=== PATIENT | female | born 1975 | race Caucasian/White ===

== ENCOUNTER 2017-07-15 10:46 | Day surgery (SDC) | payer BC ==
--- OUTSIDE RECORDS SUMMARY | 2017-07-15 10:48 | XMS | Clinical Summary ---
:1975 Author Organization [facility] Address [address] [place] [id number] Phone Care Team Providers Name Role Phone , Primary Care Provider Unavailable Allergies Active Allergy Reactions Severity Noted Date Comments Prochlorperazine Edisylate Anaphylaxis High 11/03/2014 Codeine Nausea And Vomiting 11/03/2014 Hydrocodone-Acetaminophen Nausea And Vomiting 11/03/2014 Sulfur Nausea And Vomiting 11/03/2014 Current Medications Prescription Sig. Disp. Refills Start Date End Date Status ursodiol (ACTIGALL) 300 Take 300 mg by Active mg capsule mouth 2 (two) times daily. levothyroxine (SYNTHROID, Take 50 mcg by Active LEVOTHROID) 50 MCG tablet mouth daily. omeprazole (PRILOSEC) 40 Take 40 mg by mouth Active MG capsule daily. cholecalciferol, vitamin Take 2,000 Units by Active D3, 2,000 unit Tab mouth daily. CYANOCOBALAMIN, VITAMIN Place under the Active B-12, (VITAMIN B-12 SL) tongue daily. vedolizumab (ENTYVIO) 300 Inject 300 mg Active mg SolR intravenously once every 8 weeks. nadolol (CORGARD) 40 MG Take 40 mg by mouth Active tablet daily. spironolactone Take 50 mg by mouth Active (ALDACTONE) 50 MG tablet daily. cimetidine (TAGAMET) 400 Take 400 mg by Active MG tablet mouth nightly . dextroamphetamine-ampheta Take by mouth daily Active mine . (AMPHETAMINE-DEXTROAMPHET AMINE) 5 mg Tab hydrochlorothiazide Take 25 mg by mouth Active (HYDRODIURIL) 25 MG as needed . tablet lactobacillus rhamnosus, Take 1 capsule by Active GG, (CULTURELLE) 10 mouth daily. billion cell capsule Active Problems Not on file Social History Tobacco Use Types Packs/Day Years Used Date Never Smoker Smokeless Tobacco: Never Used Alcohol Use Drinks/Week oz/Week Comments No Sex Assigned at Date Recorded Not on file Last Filed Vital Signs Vital Sign Reading Time Taken Blood Pressure 125/79 10/10/2016 10:45 AM [facility] Pulse 75 10/10/2016 11:00 AM [facility] Temperature 36.8 C (98.3 F) 10/10/2016 11:00 AM [facility] Respiratory Rate 16 10/10/2016 10:45 AM [facility] Oxygen Saturation 99% 10/10/2016 10:45 AM [facility] Inhaled Oxygen Concentration - - Weight 84.6 kg (186 lb 9.6 oz) 10/10/2016 7:58 AM [facility] Height 170.2 cm (5' 7") 10/10/2016 7:58 AM [facility] Body Mass Index 29.23 10/10/2016 7:58 AM [facility] Plan of Treatment Not on file Implants Explanted Type Area [employer] Device Expiration Model / Identifier Date Serial / Lot Stent,Biliary Advanix Duodenal Bend Preloaded 10fr 5cm - [id number] Stents-P N /A: [place] 07/19/2016 [id number] / Implanted:Qty: 1 on 11/03/2014 by Kaiden Villalobos MD [email or web address] [employer] / Explanted:Qty: 1 on 10/10/2016 l Duct [id number] Results Not on filefrom Last 3 Months
--- OUTSIDE RECORDS SUMMARY | 2017-07-15 10:48 | XMS | Clinical Summary ---
:1975 Author Organization [facility] Address [address] [place] [address] Phone Care Team Providers Name Role Phone Cici Aleah Primary Care Provider tel Allergies Active Allergy Reactions Severity Noted Date Comments Codeine GI Intolerance 08/14/2016 Hydrocodone GI Intolerance 08/14/2016 Prochlorperazine Swelling 08/14/2016 Sulfa (Sulfonamide Antibiotics) GI Intolerance 08/14/2016 Current Medications Prescription Sig. Disp. Refills Start Date End Date Status nadolol (CORGARD) 40 Take 40 mg by 07/14/2016 Active MG tablet mouth daily. vedolizumab (ENTYVIO) Infuse 300 mg Active 300 mg recon soln IV into a venous solution catheter once. Every 8 weeks cyanocobalamin, Place 5,000 mcg Active vitamin B-12, 5,000 under the tongue mcg tablet, sublingual daily. CALCIUM CARBONATE Take 1 tablet by Active (CALCIUM 500 ORAL) mouth daily. cholecalciferol, Take 1,000 Units Active vitamin D3, (VITAMIN by mouth daily. D3) 1,000 unit tablet omeprazole (PriLOSEC) Take 40 mg by Active 40 MG capsule mouth daily. spironolactone Take 50 mg by Active (ALDACTONE) 50 MG mouth 2 (two) tablet times a day. levothyroxine Take 50 mcg by Active (SYNTHROID, LEVOXYL) mouth every 50 mcg tablet morning. Lactobac #2-Bifido Take 1 capsule Active #1-S. therm (VSL#3) by mouth daily. 112.5 billion cell capsule ondansetron (ZOFRAN) 8 Take 8 mg by Active MG tablet mouth every 8 (eight) hours as needed for nausea or vomiting. magnesium oxide 400 mg Take 400 mg by 30 each 11 02/17/2017 03/19/2018 Active capsule mouth daily. blood sugar diagnostic Monitor glucose 100 strip 11 02/26/2017 Active strips strip test twice daily strips capecitabine (XELODA) Take 1,000 mg/m2 Active 500 mg chemo tablet by mouth 2 (two) times a day. 2 weeks on / one week off ursodiol (ACTIGALL) Take 600 mg by Active 300 mg capsule mouth 2 (two) times a day. furosemide (LASIX) 40 Take 60 mg by Active mg tablet mouth daily. torsemide (DEMADEX) 20 Take 1 tablet 60 tablet 6 05/12/2017 05/12/2018 Active MG tablet (20 mg total) by mouth 2 (two) times a day. sertraline (ZOLOFT) Take 100 mg by Active 100 MG tablet mouth daily. budesonide EC Take 9 mg by Active (ENTOCORT EC) 3 mg 24 mouth every hr capsule morning. diphenoxylate-atropine Take 1 tablet by Active (LOMOTIL) 2.5-0.025 mg mouth 4 (four) per tablet times a day as needed for diarrhea. 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 NAFLD (nonalcoholic fatty liver disease) 08/14/2016 Cirrhosis of liver without ascites 08/14/2016 Crohn's disease without complication 08/14/2016 Vitamin A deficiency 08/14/2016 Encounters Date Type Specialty Care Team Description 07/08/2017 Telephone Transplant Masismo Cohen, Speak with Coordinator; YAMILEX Return Missed Call 06/18/2017 Orders Only Transplant Jacob Weinberg PSC (posterior subcapsular cataract) (Primary Dx) 06/03/2017 [facility] Bull Akhtar MD 05/14/2017 [facility] Radiology [facility], Encounter Syed Beal MD 05/14/2017 [facility] Radiology [place], Encounter Syed Beal MD 05/14/2017 Hospital Radiology [place], Encounter Syed Beal MD 05/14/2017 Ancillary Orders Radiology Syed Kinney MD 05/14/2017 Telephone Transplant Lenard Jacob requested SCAN results 05/14/2017 Transcribe Transplant Lenard Jacob Orders 05/13/2017 Telephone Transplant Lenard Jacob clinic follow up 05/12/2017 Hospital Transplant [place], Sclerosing cholangitis Encounter Syed Beal MD (Primary Dx);Cholangiocarcinoma; Other ascites;Generalized edema 05/12/2017 Hospital Transplant [place], Cholangiocarcinoma Encounter Syed Beal MD 05/12/2017 [facility] Radiology Jamie Rodríguez Cholangiocarcinoma Encounter Cristi SLATER MD 05/12/2017 [facility] Radiology Jamie Rodríguez Cholangiocarcinoma Encounter Cristi SLATER MD 05/12/2017 Refill Transplant [place], Med Refill Mirza Chavez MD 05/12/2017 Ancillary Orders GastroenterJamie Mcdermott III, MD 05/12/2017 Ancillary Orders Gastroenterology Jamie Rodríguez III, 04/28/2017 Telephone Transplant Erica Menjivar, CCA MELD exception RN upgrade approved to 25 points on 05/01/17, 04/23/2017 Telephone Transplant Erica Menjivar, Applied for CCA RN exception upgrade due 05/01/17 04/23/2017 Telephone Transplant Rudy, scheduled appointments Amy (Vani called to inform us that she has been admitted at [facility]) from Last 3 Months Family History Medical History Relation Name Comments Prostate cancer Maternal Grandfather Pancreatic cancer Maternal Grandmother Hypertension Mother Relation Name Status Comments Maternal Grandfather Maternal Grandmother Mother Social History Tobacco Use Types Packs/Day Years Used Date Never Smoker Alcohol Use Drinks/Week oz/Week Comments No Sex Assigned at Date Recorded Not on file Last Filed Vital Signs Vital Sign Reading Time Taken Blood Pressure 105/62 06/03/2017 11:21 AM CDT Pulse 71 06/03/2017 11:21 AM CDT Temperature 36.8 C (98.3 F) 06/03/2017 11:21 AM CDT Respiratory Rate 21 06/03/2017 11:21 AM CDT Oxygen Saturation 99% 06/03/2017 11:21 AM CDT Inhaled Oxygen Concentration - - Weight 85 kg (187 lb 5 oz) 05/12/2017 9:23 AM CDT Height 170.2 cm (5' 7") 05/12/2017 9:23 AM CDT Body Mass Index 29.34 05/12/2017 9:23 AM CDT Plan of Treatment Date Type Specialty Care Team Description 06/18/2017 Procedure Pass Transplant 08/04/2017 Appointment Radiology Jamie Rodríguez III, MD [address] [facility] [address] [place] [address] [phone] 08/04/2017 Appointment Transplant 08/04/2017 Appointment Transplant Health Maintenance Due Date Last Done Comments INFLUENZA VACCINE 05/20/2017 07/23/2012 PAP SMEAR 11/04/2019 11/04/2016 Results Single antigen beads (06/03/2017 5:59 PM) Component Value Ref Range Single antigen beads See link below for PDF Lab Report Specimen Performing Laboratory [facility] DEPARTMENT OF PATHOLOGY AND GENOMIC MEDICINE [address] [place] [address] Type and screen (06/03/2017 5:30 PM) Component Value Ref Range ABO grouping A Rh type POS Antibody screen (gel) NEG Specimen Performing Laboratory Blood [facility] DEPARTMENT OF PATHOLOGY AND GENOMIC MEDICINE [address] [place] [address] Estimated GFR (06/03/2017 2:30 PM)Only the most recent of2 resultswithin the time period is included. Component Value Ref Range GFR Non Af Amer >90 mL/min/1.73 m2 GFR Af Amer >90 mL/min/1.73 m2 Comment: Chronic kidney disease: <60 mL/min/1.73m2 Kidney failure: <15 mL/min/1.73m2 The estimated GFR is calculated from the IDMS-traceable Modification of Diet in Renal Disease Equation. The accuracy of the calculation is poor when the creatinine is normal. Calculated values >90 mL/min/1.73m2 are not reported. This equation has not been validated in children (<18 years), women, the elderly (>70 years), or ethnic groups other than Caucasians and Americans. Specimen Performing Laboratory Plasma specimen [facility] DEPARTMENT OF PATHOLOGY AND GENOMIC MEDICINE [address] [place] [address] Partial thromboplastin time, activated (06/03/2017 2:30 PM)Only the most recent of2 resultswithin the time period is included. Component Value Ref Range PTT 30.2 23.0 - 36.0 sec Comment: PTT therapeutic range for unfractionated heparin is 61.0-112.0 seconds which corresponds to Anti-Xa 0.3-0.7 U/ml. Specimen Performing Laboratory Blood [facility] DEPARTMENT OF PATHOLOGY AND GENOMIC MEDICINE [address] [place] [address] Prothrombin time with INR (06/03/2017 2:30 PM)Only the most recent of2 resultswithin the time period is included. Component Value Ref Range Prothrombin time 16.1(H) 12.0 - 15.0 sec INR 1.3 Comment: The International Normalized Ratio (INR) is a therapeutic monitoring tool for patients who are stable on oral anticoagulant therapy. An INR of 2.0-3.0 is suggested for deep vein thrombosis/pulmonary embolism. Specimen Performing Laboratory Blood [facility] DEPARTMENT OF PATHOLOGY AND [facility] MEDICINE [address] [place] [address] Fibrinogen (06/03/2017 2:30 PM) Component Value Ref Range Fibrinogen 239 200 - 450 mg/dL Specimen Performing Laboratory Blood [facility] DEPARTMENT OF PATHOLOGY AND [facility] [address] [place] [address] CBC with platelet and differential (06/03/2017 2:30 PM)Only the most recent of2 resultswithin the time period is included. Component Value Ref Range WBC 4.33(L) 4.50 - 11.00 k/uL RBC 3.10(L) 4.20 - 5.50 m/uL HGB 11.2(L) 12.0 - 16.0 g/dL HCT 33.2(L) 37.0 - 47.0 % MCV 107.1(H) 82.0 - 100.0 fL MCH 36.1(H) 27.0 - 34.0 pg MCHC 33.7 31.0 - 37.0 g/dL RDW - SD 58.1(H) 37.0 - 55.0 fL MPV 10.9 8.8 - 13.2 fL Platelet count 59(L) 150 - 400 k/uL Nucleated RBC 0.70 /100 WBC Neutrophils 85.7(H) 39.0 - 69.0 % Lymphocytes 5.1(L) 25.0 - 45.0 % Monocytes 7.4 0.0 - 10.0 % Eosinophils 0.9 0.0 - 5.0 % Basophils 0.0 0.0 - 1.0 % Immature granulocytes 0.9Comment:"Immature granulocytes" 0.0 - 1.0 % (promyelocytes, myelocytes, metamyelocytes) Specimen Performing Laboratory Blood [facility] [address] [address] Phosphorus level (06/03/2017 2:30 PM) Component Value Ref Range Phosphorus 2.9 2.4 - 4.5 mg/dL Specimen Performing Laboratory Plasma specimen [facility] DEPARTMENT PATHOLOGY [address] [address] Magnesium level (06/03/2017 2:30 PM) Component Value Ref Range Magnesium 2.3 1.6 - 2.6 mg/dL Specimen Performing Laboratory Plasma specimen [facility] DEPARTMENT PATHOLOGY [address] [address] LDH (06/03/2017 2:30 PM) Component Value Ref Range LDH 426(H) 87 - 225 U/L Specimen Performing Laboratory Plasma specimen [facility] DEPARTMENT PATHOLOGY [address] [address] GGT (06/03/2017 2:30 PM) Component Value Ref Range GGT 107(H) 0 - 39 U/L Specimen Performing Laboratory Plasma specimen [facility] [address] [address] Ionized calcium (06/03/2017 2:30 PM) Component Value Ref Range pH 7.45 Ionized calcium 1.20 1.11 - 1.32 mmol/L Specimen Performing Laboratory Plasma specimen [facility] DEPARTMENT PATHOLOGY [address] [address] Hepatic function panel (06/03/2017 2:30 PM)Only the most recent of2 resultswithin the time period is included. Component Value Ref Range Albumin 3.1(L) 3.5 - 5.0 g/dL Total bilirubin 3.7(H) 0.0 - 1.2 mg/dL Bilirubin direct 1.7(H) 0.0 - 0.3 mg/dL Alkaline phosphatase 125(H) 35 - 104 U/L Protein 6.6 6.3 - 8.3 g/dL Comment: Irene 4.6-7.0 g/dL 1 week 4.4-7.6 g/dL 7 months-1year5.1-7.3 g/dL 1-2 years5.6-7.5 g/dL >3 years6.0-8.0 g/dL 18-150 6.3-8.3 g/dL ALT 49 5 - 50 U/L AST 56(H) 10 - 35 U/L Specimen Performing Laboratory Plasma specimen [facility] DEPARTMENT OF PATHOLOGY AND GENOMIC MEDICINE [address] [place] [address] Basic metabolic panel (06/03/2017 2:30 PM)Only the most recent of2 resultswithin the time period is included. Component Value Ref Range Sodium 139 135 - 148 mEq/L Potassium 2.9(LL) 3.5 - 5.0 mEq/L Chloride 97(L) 98 - 112 mEq/L CO2 27 24 - 31 mEq/L Anion gap 15 7 - 15 mEq/L Comment: Starting from January , anion gap calculation no longer incorporates potassium. Please note the change. BUN 14 6 - 20 mg/dL Creatinine 0.7 0.5 - 0.9 mg/dL Glucose 105(H) 65 - 99 mg/dL Calcium 9.2 8.3 - 10.2 mg/dL Specimen Performing Laboratory Plasma specimen [facility] DEPARTMENT OF PATHOLOGY AND GENOMIC MEDICINE [address] [place] [address] Urinalysis screen and microscopy, with reflex to culture (06/03/2017 1:50 PM) Component Value Ref Range Specimen site Clean catch Color, UA Natalia Appearance, UA Hazy Specific gravity, UA 1.017 1.001 - 1.035 pH, UA 6.0 5.0 - 8.5 Protein, UA Negative Negative Glucose, UA Negative Negative Ketones, UA Negative Negative Bilirubin, UA Negative Negative Blood, UA Moderate(A) Negative Nitrite, UA Negative Negative Urobilinogen, UA 2.0(A) <2.0 Leukocyte esterase, UA Small(A) Negative Epithelial cells, UA 5 /HPF WBC, UA 24(H) 0 - 4 /HPF RBC, UA 8(H) 0 - 2 /HPF Bacteria, UA Few None seen Yeast, UA None seen Yeast with pseudohyphae, UA None seen Calcium oxalate crystals, UA Moderate Hyaline casts, UA 2 /LPF Specimen Performing Laboratory Urine [facility] DEPARTMENT OF PATHOLOGY AND [facility] [address] [place] [address]77 Gram stain (06/03/2017 1:50 PM) Component Value Ref Range Gram stain result Rare WBC's Rare Yeast Few Gram positive rods Occasional Gram negative rods Comment: Specimen Information Specimen Source: Urine Specimen Site: Random void Specimen Performing Laboratory Urine - Random void [facility] DEPARTMENT OF PATHOLOGY AND GENOMIC MEDICINE [address] [place] [address] Urine culture (06/03/2017 1:50 PM) Component Value Ref Range Urine culture isolate Escherichia coli >10-5 cfu/ml (A) Comment: Specimen Information Specimen Source: Urine Specimen Site: Random void Urine culture isolate Mixed Gram positive fausto 10-5 cfu/ml (A) Specimen Performing Laboratory Urine - Random void [facility] DEPARTMENT OF PATHOLOGY AND GENOMIC MEDICINE [address] [place] [address] Organism Antibiotic Method Susceptibility Escherichia coli Ampicillin EDS 8 mcg/mL: Susceptible Escherichia coli Amoxicillin/Clavulanate DES 8/4 mcg/mL: Susceptible Escherichia coli Amikacin DES <=4 mcg/mL: Susceptible Escherichia coli Aztreonam DES <=1 mcg/mL: Susceptible Escherichia coli Ceftazidime DES 1 mcg/mL: Susceptible Escherichia coli Ciprofloxacin DES >2 mcg/mL: Resistant Escherichia coli Ceftriaxone DES <=0.5 mcg/mL: Susceptible Escherichia coli Cefuroxime Sodium DES 16 mcg/mL: Resistant Escherichia coli Cefazolin DES 2 mcg/mL: Susceptible Escherichia coli Cefipime DES <=0.5 mcg/mL: Susceptible Escherichia coli Nitrofurantoin DES <=16 mcg/mL: Susceptible Escherichia coli Cefoxitin DES 16 mcg/mL: Resistant Escherichia coli Gentamicin DES >8 mcg/mL: Resistant Escherichia coli Imipenem DES <=0.25 mcg/mL: Susceptible Escherichia coli Levofloxacin DES >4 mcg/mL: Resistant Escherichia coli Meropenem DES <=0.125 mcg/mL: Susceptible Escherichia coli Tobramycin DES 8 mcg/mL: Resistant Escherichia coli Ampicillin/Sulbactam DES 8/4 mcg/mL: Susceptible Escherichia coli Trimethoprim/Sulfamethoxazole DES <=0.5/9.5 mcg/mL: Susceptible Escherichia coli Tetracycline DES 4 mcg/mL: Susceptible Escherichia coli Piperacillin/Tazobactam DES 8/4 mcg/mL: Susceptible Escherichia coli Ertapenem DES <=0.125 mcg/mL: Susceptible Escherichia coli Tigecycline DES <=0.5 mcg/mL: Susceptible Blood culture, aerobic& anaerobic (06/03/2017 1:05 PM)Only the most recent of2 resultswithin the time period is included. Component Value Ref Range Blood culture isolate No growth after 5 days of incubation. Comment: Specimen Information Specimen Source: Blood Specimen Site: RIGHT UPPER Specimen Performing Laboratory Blood [facility] DEPARTMENT OF PATHOLOGY AND GENOMIC MEDICINE [address] [place] [address] Smear review (05/12/2017 11:28 AM) Component Value Ref Range Platelet slide review Edmundo slt decr Specimen Performing Laboratory [facility] DEPARTMENT OF PATHOLOGY AND GENOMIC MEDICINE [address] [place] [address]31 Alpha fetoprotein (05/12/2017 11:28 AM) Component Value Ref Range Alpha fetoprotein 6.2 0.0 - 8.3 ng/mL Comment: The Shelly 8000 AFP immunoassay was used. Results obtained with different assay methods or kits should not be used interchangeably and may be different. 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 Subsequently, axial images of the abdomen and pelvis were obtained following intravenous administration of iodinated contrast. Sagittal andcoronal computerized reformatted images were also obtained.Automatic exposure control or iterative reconstruction techniques used to reduce dose. COMPARISON:03/21/2017, from Marie Tamez FINDINGS: 1. Irregular and lobulated contours of the liver with caudate enlargement compatible with hepatic cirrhosis. Several geographic areas of relative low density within the liver are probably relatedto altered perfusion. They are similar to comparison. 2.Hepatic veins appear compressed but patent. Portal veins are patent. Spleen is enlarged, measuring 17.3 cm in length. Adrenals, pancreas, and kidneys appear unremarkable. Moderate ascites is again seen. 3.Mild degree of colonic wall thickening especially involving the right colon and hepatic flexure may be related to portal colopathy. Small nodes in the retroperitoneum appear similar. IMPRESSION: 1.Cirrhosis of the liver with stable heterogeneous areas of enhancement without new mass. 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 Subsequently,axial images of the abdomen and pelvis were obtained following intravenousadministration of iodinated contrast. Sagittal and coronal computerizedreformatted images were also obtained.Automatic exposure control or iterative reconstruction techniquesused to reduce dose. COMPARISON: 03/21/2017, from BlancaErma Dashawn FINDINGS: 1. Irregular and lobulated contours of the liver with caudateenlargement compatible with hepatic cirrhosis. Several geographic areas ofrelative low density within the liver are probably related to alteredperfusion. They are similar to comparison. 2. Hepatic veins appear compressed but patent. Portal veins are patent.Spleen is enlarged, measuring 17.3 cm in length. Adrenals, pancreas, andkidneys appear unremarkable. Moderate ascites is again seen. 3. Mild degree of colonic wall thickening especially involving the rightcolon and hepatic flexure may be related to portal colopathy. Small nodesin the retroperitoneum appear similar. IMPRESSION: 1. Cirrhosis of the liver with stable heterogeneous areas of enhancementwithout new mass. 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 The lack of intravenous contrast reduces the sensitivity of detecting solid organ disease and evaluating vasculature. Sagittal and coronal computerized reformatted images were also obtained. Radiation dose reduction technique was utilized. COMPARISON: February 03, 2017 IMPRESSION: 1.No mediastinal or hilar masses have developed. 2.Again noted is a prominent azygos vein. 3.No pulmonary parenchymal masses or infiltrates are seen, and there are no pleural effusions. 4.Please see CT abdomen and pelvis report from this day for discussion of abdominal findings. [facility]-[id number] Procedure Note Interface, Radiology Results [facility] - 05/12/2017 9:36 AM CDT EXAMINATION: CT CHEST WO CONTRAST CLINICAL HISTORY: C22.1 Intrahepatic bile duct carcinoma, Metastaticworkup TECHNIQUE: Multiple axial images of the chest were obtained without intravenouscontrast. The lack of intravenous contrast reduces the sensitivity ofdetecting solid organ disease and evaluating vasculature. Sagittal and coronal computerized reformatted images were also obtained. Radiation dose reduction technique was utilized. COMPARISON: February 03, 2017 IMPRESSION: 1. No mediastinal or hilar masses have developed. 2. Again noted is a prominent azygos vein. 3. No pulmonary parenchymal masses or infiltrates are seen, and there areno pleural effusions. 4. Please see CT abdomen and pelvis report from this day for discussionof abdominal findings. [facility]-[id number] CT Abd/Pelvic External Study (04/21/2017 3:49 PM) Specimen Performing Laboratory [facility] [address] [place] [address] Narrative This exam was not acquired at a [facility] facility and has not been interpreted by a [facility] Provider.The exam was imported into our imaging system for comparisons purposes. from Last 3 Months Insurance Payer Benefit Plan / Group Subscriber ID Type Phone Address BCBS BCBS CHOICE PPO/FEDERAL EMPL PPO [id number] PPO Home: [id number] [phone] [facility] [place] [id number] VANI BAKER Transplant Self 1975 Home: [address] [phone] [facility] [place] [id number]
[2017-07-15] MEDS ORDERED: Albumin 25% 100 ML ONE (10:56)
[2017-07-15 11:03] LABS: #Lymphocytes 0.7 thou/uL (1.20-3.40); #Neutrophils 8.5 thou/uL (1.40-6.50); %Basophils 0.2 % (0.0-1.0); %Eosinophils 0.4 % (0.0-10.0); %Lymphocytes 6.9 % (21.0-51.0); %Monocytes 9.5 % (0.0-10.0); Hematocrit 30.3 % (36.0-47.0); Mean Platelet Volume 7.5 fL (7.4-10.4); Red Blood Cell (RBC) Count 2.67 mill/uL (4.20-5.40); White Blood Cell (WBC) Count 10.3 thou/uL (4.8-10.8)
[2017-07-15 11:34] LABS: Prothrombin Time 18.2 SEC (12.0-14.7)
[2017-07-15] MEDS ORDERED: Sodium Chloride 0.9% 20 ML ONE (12:22)
--- NOTE | 2017-07-15 15:41 | ULT ---
SONOGRAPHICALLY GUIDED PARACENTESIS: History: Recurring ascites. FINDINGS: After explaining the procedure and answering all questions, the right abdomen was prepped and draped in the usual sterile fashion. Sterile technique, buffered local anesthesia, sonographic guidance, a nd an anterior right lower quadrant approach were used to carefully advance a 19 gauge needle and ca theter into the free fluid. The catheter was left to drain a total volume of 5.0 L clear yellow asci kem. Catheter was removed. Patient tolerated the procedure well and was dismissed in good condition. IMPRESSION: Technically successful sonographically guided paracentesis. POS: [facility]
[2017-07-16 08:21] VITALS: BP 100/55; TEMP 98.4; BMI 29.0
== END 2017-07-15 13:10 | disposition home or self-care (01) ==
LOC: ULT 10:46
PROVIDERS: ATTEND Internal Medicine Gastroenterology
PROC: 0W9G3ZX Drainage of Peritoneal Cavity, Percutaneous Approach, Diagnostic (ICD-10-PCS; principal; 2017-07-15)
DX: R18.8 Other ascites (principal); C22.1 Intrahepatic bile duct carcinoma; K50.118 Crohn's disease of large intestine with other complication; Z88.2 Allergy status to sulfonamides; Z88.5 Allergy status to narcotic agent; Z88.8 Allergy status to other drugs, medicaments and biological substances; Z90.49 Acquired absence of other specified parts of digestive tract; Z82.49 Family history of ischemic heart disease and other diseases of the circulatory system
CPT/HCPCS: 36415; 49083; 85025; 85610; 85730; A4216; P9047

== ENCOUNTER 2017-07-25 22:24 | Emergency (ER) | payer BC ==
[2017-07-25 23:35] LABS: Anion Gap 13 mmol/L (10-20); BUN (Urea Nitrogen) 35 mg/dL (7.0-18.7); Calc. Creatinine Clearance 0 mL/min (70-130); Calcium 7.9 mg/dL (7.8-10.44); Carbon Dioxide 19 mmol/L (22-29); Chloride 96 mmol/L (98-107); Estimated GFR-MDRD 20
[2017-07-25 23:35] LABS: Bilirubin Moderate (Negative); Blood, Urine Negative (Negative); Glucose, Urine (Dipstick) Negative (Negative); Ketone, Urine Trace mg/dL (Negative); Nitrite Negative (Negative); Protein, Urine (Dipstick) 100 mg/dL (Neg-Trace); Urobilinogen 0.2 mg/dL (0.2-1.0)
[2017-07-25 23:44] LABS: Anisocytosis SLIGHT = 6-15 cells (100X) (0-5/hpf); Band 2 % (5-11); Hematocrit 28.7 % (36.0-47.0); Macrocytosis SLIGHT = 6-15 cells (100X) (0-5/hpf); Metamyelocyte 3 % (0-0); Myelocyte 3 % (0-0); Neutrophil 78 % (42-75); Polychromasia SLIGHT = 2-3 cells (100X) (0-2/hpf); Reactive Lymphocytes 1 % (0-10); White Blood Cell (WBC) Count 9.3 thou/uL (4.8-10.8)
[2017-07-25 23:47] LABS: RBC/HPF 0-3 HPF (0-3)
[2017-07-25 23:48] LABS: Bacteria/HPF Rare-Few HPF (None Seen); Hyaline Casts/LPF 0-3 HYALINE CAST LPF (0-3 Hyaline); Squamous Epithelial 0-3 HPF (0-3)
== END 2017-07-26 00:17 | disposition home or self-care (01) ==
LOC: ERS 22:24
DX: N18.9 Chronic kidney disease, unspecified (principal); D61.818 Other pancytopenia; R18.8 Other ascites; Z79.899 Other long term (current) drug therapy
CPT/HCPCS: 36415; 51702; 80048; 81003; 81015; 85025